=== PATIENT | male | born 1975 | race Hispanic/Latino ===

== ENCOUNTER 2019-05-25 03:00 | Inpatient (IN) | payer SELFPAY ==
[~2019-05-25] VITALS: Ht 170.2 cm; Wt 86.1 kg
[2019-05-25] MEDS ORDERED: SODIUM CHLORIDE 0.9% 1000ML 1,000 ML IV SCH (03:36)
[2019-05-25] MEDS ORDERED: ONDANSETRON HCL 4 MG/2 ML VIAL IV PRN (03:45)
[2019-05-25] MEDS ORDERED: NITROGLYCERIN 0.4 MG SL TAB SL PRN (03:45)
[2019-05-25] MEDS ORDERED: ACETAMINOPHEN 325 MG TAB PO PRN ×2 (03:45)
[2019-05-25] MEDS ORDERED: SODIUM CHLORIDE 0.9% 1000ML 1,000 ML IV ONE (03:45)
[2019-05-25 04:37] LABS: HEMATOCRIT 42.3 % (42-54); MEAN CORPUSCULAR HEMOGLOBIN 29.1 pg (27.0-33.0); MEAN CORPUSCULAR HGB CONC 33.1 g/dL (32.0-36.0); MEAN CORPUSCULAR VOLUME 87.9 fL (79-99); PLATELET COUNT (AUTO) 246 K/uL (130-400); RED BLOOD CELL COUNT(AUTO) 4.81 MIL/uL (4.50-6.20); RED CELL DISTRIBUTION WIDTH 12.1 % (11.0-15.5); WHITE BLOOD COUNT (AUTO) 8.6 K/uL (4.8-10.8)
[2019-05-25 04:45] VITALS: BP 95/64
[2019-05-25 04:49] LABS: CREATININE 0.9 mg/dL (0.5-1.5); POTASSIUM 3.7 mmol/L (3.5-5.1)
[2019-05-25 04:52] LABS: INR 0.96 (0.85-1.15); PARTIAL THROMBOPLASTIN TIME 32.9 SEC (26.3-35.5); PROTHROMBIN TIME 10.1 SEC (9.6-11.6)
[2019-05-25 04:55] LABS: HEMOGLOBIN A1C 5.5 % (4.0-6.0)
[2019-05-25 05:21] LABS: ALBUMIN 3.1 g/dL (3.5-5.0); BILIRUBIN,TOTAL 0.4 mg/dL (0.2-1.0); MAGNESIUM 2.7 mg/dL (1.80-2.40); TOTAL PROTEIN, SERUM 6.5 g/dL (6.0-8.3)
[2019-05-25 05:24] LABS: TROPONIN I 5.37 ng/mL (0.00-0.06)
[2019-05-25 06:37] LABS: BAND NEUTROPHILS % (MANUAL) 1 % (0-2); EOSINOPHILS % (MANUAL) 4 % (1-6); LYMPHOCYTES % (MANUAL) 34 % (22-44); MAN.DIFF COMMENT-IMPRESSION MANUAL DIFFERENTIAL; MONOCYTES % (MANUAL) 8 % (2-9); SEGMENTED NEUTROPHILS % 53 % (40-70)
[2019-05-25 06:42] LABS: PLATELET MORPHOLOGY COMMENT ADEQUATE
[2019-05-25] MEDS ORDERED: FAMOTIDINE/PF 20 MG/2 ML VIAL IV ONE (07:09)
[2019-05-25] MEDS: FAMOTIDINE/PF 20 MG/2 ML VIAL IV SCH ×2 (07:15→20:56)
[2019-05-25 07:37] LABS: APPEARANCE,URINE Clear (CLEAR); BILIRUBIN,URINE Negative (NEGATIVE); COLOR,URINE Yellow (YELLOW); GLUCOSE, URINE (UA) Negative (NEGATIVE); KETONES,URINE Negative (NEGATIVE); LEUKOCYTE ESTERASE ,URINE Negative (NEGATIVE); NITRATE,URINE Negative (NEGATIVE); OCCULT BLOOD,URINE Negative (NEGATIVE); PROTEIN,URINE Negative (NEGATIVE)
[2019-05-25 07:46] VITALS: BP 89/56
[2019-05-25 07:47] LABS: AMPHET/METH SCREEN,URINE NEGATIVE (NEGATIVE); BARBITURATE SCREEN, URINE NEGATIVE (NEGATIVE); BENZODIAZEPINES SCREEN,URINE NEGATIVE (NEGATIVE); CANNABINOID SCREEN,URINE NEGATIVE (NEGATIVE); COCAINE SCREEN,URINE POSITIVE (NEGATIVE); OPIATE SCREEN,URINE POSITIVE (NEGATIVE); PHENCYCLIDINE SCREEN,URINE NEGATIVE (NEGATIVE)
--- NOTE | 2019-05-25 07:50 | NUR ---
ASSESSMENT PT IS AAOX3 DENIES CP DENIES SOB DENIES AT THIS TIME RESTING IN BED. VISITOR IS AT BEDSIDE,CALL LIGHT WITHIN REACH.
[2019-05-25 10:00] LABS: TROPONIN I 4.07 ng/mL (0.00-0.06)
[2019-05-25 11:46] VITALS: BP 102/61
--- NOTE | 2019-05-25 12:09 | NUR ---
DR Jasmeet KING CALLED UPDATES GIVEN ON PATIENT, ORDERS RECEIVED
[2019-05-25 15:51] VITALS: BP 105/72
[2019-05-25] MEDS ORDERED: CLOPIDOGREL BISULFATE 75 MG TAB PO SCH (20:00)
[2019-05-25] MEDS ORDERED: ASPIRIN 325MG EC TAB 325 MG TABLET.DR PO SCH (20:00)
[2019-05-25 20:19] VITALS: BP 115/53
[2019-05-25] MEDS: ENOXAPARIN SODIUM 80 MG/0.8 ML SQ SCH (20:56)
[2019-05-25 23:53] VITALS: BP 109/69
[2019-05-26] VITALS (11 sets, daily range): BP systolic 109–123; BP diastolic 59–73
[2019-05-26 04:32] LABS: HEMATOCRIT 40.4 % (42-54); MEAN CORPUSCULAR HEMOGLOBIN 29.9 pg (27.0-33.0); MEAN CORPUSCULAR HGB CONC 33.4 g/dL (32.0-36.0); MEAN CORPUSCULAR VOLUME 89.4 fL (79-99); PLATELET COUNT (AUTO) 233 K/uL (130-400); RED BLOOD CELL COUNT(AUTO) 4.52 MIL/uL (4.50-6.20); RED CELL DISTRIBUTION WIDTH 12.4 % (11.0-15.5); WHITE BLOOD COUNT (AUTO) 6.5 K/uL (4.8-10.8)
[2019-05-26 05:05] LABS: POTASSIUM 3.4 mmol/L (3.5-5.1)
[2019-05-26 05:13] LABS: TROPONIN I 2.84 ng/mL (0.00-0.06)
[2019-05-26 05:21] LABS: BAND NEUTROPHILS % (MANUAL) 2 % (0-2); BASOPHILS % (MANUAL) 4 % (0-2); EOSINOPHILS % (MANUAL) 6 % (1-6); LYMPHOCYTES % (MANUAL) 44 % (22-44); MAN.DIFF COMMENT-IMPRESSION MANUAL DIFFERENTIAL; MONOCYTES % (MANUAL) 2 % (2-9); PLATELET MORPHOLOGY COMMENT ADEQUATE; SEGMENTED NEUTROPHILS % 42 % (40-70)
[2019-05-26] MEDS: ENOXAPARIN SODIUM 80 MG/0.8 ML SQ SCH (07:12)
[2019-05-26] MEDS: FAMOTIDINE/PF 20 MG/2 ML VIAL IV SCH ×2 (07:12→21:07)
--- NOTE | 2019-05-26 07:20 | NUR ---
ASSESSMENT PT IS AAOX3 DENIES CP DENIES SOB DENIES NV NO COMPLAINTS, RESTING IN BED. NPO STATUS FOR [facility] TODAY. CALL LIGHT WITHIN REACH,
--- NOTE | 2019-05-26 12:20 | NUR ---
[facility] CALL[facility]
--- NOTE | 2019-05-26 12:39 | NUR ---
[facility] PICKED UP PATIENT FOR [facility] TELE PACK REMOVED
[2019-05-26] MEDS ORDERED: REGADENOSON 0.4 MG/5 ML PF SYG IVP SCH (13:00)
--- NOTE | 2019-05-26 15:02 | NUR ---
cm note met with patient and states resides at home with spouse, independent with ambulation and adls, no dme. 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 dc plan is back home. referred to [email or web address] for possible medicaid or [place] assist, discussed [place] info and rx assist programs. pt verbalizes understanding. Addendum: 05/26/19 at 1503 by BONIFACIO RIZO CM Amended: Links added.
--- NOTE | 2019-05-26 17:58 | NUR ---
PATIENT RETURNED [facility] TELE PACK APPLIED TO PATIENT. HR SR 76. DENIES CP DENIES SOB DENIES NV NO COMPLAINTS. FAMILY IS AT BEDSIDE.
[2019-05-26] MEDS ORDERED: IOHEXOL-350 50ML VIAL IV ONE (19:32)
[2019-05-26] MEDS ORDERED: NITROGLYCERIN 5 MG/ML 10 ML VIAL IV ONE (19:32)
[2019-05-26] MEDS ORDERED: LIDOCAINE HCL 2% 20ML ONE (19:32)
[2019-05-26] MEDS ORDERED: IOHEXOL 350 MG/ML 100ML INFUS..BTL IV ONE (19:32)
[2019-05-26] MEDS ORDERED: HEPARIN SODIUM 1000UNIT/ML 10ML VIAL ONE (19:32)
[2019-05-26] MEDS ORDERED: MIDAZOLAM HCL 1 MG/ML 2ML VIAL ONE (20:05)
[2019-05-27 03:00] VITALS: BP 126/77
[2019-05-27 03:42] LABS: HEMATOCRIT 42.4 % (42-54); MEAN CORPUSCULAR HEMOGLOBIN 29.2 pg (27.0-33.0); MEAN CORPUSCULAR HGB CONC 32.8 g/dL (32.0-36.0); MEAN CORPUSCULAR VOLUME 89.1 fL (79-99); PLATELET COUNT (AUTO) 254 K/uL (130-400); RED BLOOD CELL COUNT(AUTO) 4.76 MIL/uL (4.50-6.20); RED CELL DISTRIBUTION WIDTH 12.2 % (11.0-15.5); WHITE BLOOD COUNT (AUTO) 6.5 K/uL (4.8-10.8)
[2019-05-27 03:56] LABS: POTASSIUM 3.5 mmol/L (3.5-5.1)
[2019-05-27 07:20] VITALS: BP 129/77
[2019-05-27] MEDS ORDERED: FAMOTIDINE 20MG TAB 20 MG TAB PO SCH (09:00)
[2019-05-27] MEDS ORDERED: ASPIRIN 81 MG EC TAB PO SCH (09:00)
--- NOTE | 2019-05-27 09:00 | NUR ---
AM ASSESSMENT PT LAYING IN BED, HOB ELEVATED 30 DEGREES, RESTING. SPOUSE @ BEDSIDE. A/O X 3. NO SOB. NO DISTRESS NOTED. DENIES CHEST PAIN OR DISCOMFORT. DENIES PALPITATIONS. TELE: SR. DENIES N/V AND/OR DIARRHEA. RT GROIN MYNX, DRY & INTACT. PUNCTURE SITE SOFT, NON-TENDER. NO BLEEDING, NO HEMATOMA NOTED. (+) STRONG BILATERAL PEDAL PULSES. BLE PINK & WARM TO TOUCH. UP AD SHERICE. INSTRUCTED TO CALL FOR ASSISTANCE. CALL ISABELLE W/IN REACH.
[2019-05-27 11:20] VITALS: BP 120/76
[2019-05-27] MEDS ORDERED: AEC81 PO (14:19)
--- NOTE | 2019-05-27 14:55 | NUR ---
DISCHARGE VERBAL & WRITTEN DISCHARGE INSTRUCTIONS REVIEWED & GIVEN TO PT. QUESTIONS ENCOURAGED & CLARIFIED. PROPER CARE & ACTIVITY AFTER LEFT HEART CATH REVIEWED. NEW PRESCRIBED MEDICATIONS REVIEWED. PT INFORMED PRESCRIPTION TRANSMITTED TO PHARMACY IN FILE. DRUG ABUSE TEACHING REINFORCED, HX OF COCAINE USE. TELE CATHERINE REMOVED. IV DISCONTINUED. PT TO GATHER PERSONAL BELONGINGS. WILL NOTIFY STAFF WHEN READY TO BE TAKEN TO PRIVATE VEHICLE.
--- NOTE | 2019-05-27 15:25 | NUR ---
DISCHARGE PT TAKEN TO PRIVATE VEHICLE VIA WC BY Robi MCFADDEN PCP. NO DISTRESS NOTED.
== END 2019-05-27 15:25 | disposition home or self-care (01) | DRG 282 ==
LOC: PREOBSVTOIN 03:14 → 2DH 03:21
PROVIDERS: ADMIT Internal Medicine; ATTEND Internal Medicine
PROC: B2111ZZ Fluoroscopy of Multiple Coronary Arteries using Low Osmolar Contrast (ICD-10-PCS; principal; 2019-05-25)
PROC: B2151ZZ Fluoroscopy of Left Heart using Low Osmolar Contrast (ICD-10-PCS; 2019-05-25)
PROC: 4A023N7 Measurement of Cardiac Sampling and Pressure, Left Heart, Percutaneous Approach (ICD-10-PCS; 2019-05-25)
DX: I21.4 Non-ST elevation (NSTEMI) myocardial infarction (principal); F14.10 Cocaine abuse, uncomplicated; I25.10 Atherosclerotic heart disease of native coronary artery without angina pectoris; Z71.51 Drug abuse counseling and surveillance of drug abuser
CPT/HCPCS: 36415; 78452; 80048; 80053; 80061; 80305; 81003; 82550; 82948; 83036; 83735; 83874; 84484; 85025; 85027; 85610; 85730; 93005; 93017; 93306; 93458; 93459; 96374; 99156; 99157; A9500; C1894; G0378; J1644; J1650; J2250; J2785; J3490; J7030; Q9967